=== PATIENT | male | born 1985 | race Caucasian/White ===

== ENCOUNTER 2016-10-12 21:49 | Emergency (ER) | payer SELFPAY ==
[2016-10-12 22:04] VITALS: BP 102/64; PULSE 83; RESP 18; TEMP 98.1; O2SAT 100
== END 2016-10-12 22:00 | disposition left against medical advice (07) ==
LOC: C.ER 21:49
DX: R10.13 Epigastric pain (principal); Z02.9 Encounter for administrative examinations, unspecified

== ENCOUNTER 2018-01-07 13:41 | Emergency (ER) | payer MEDICAID, OTHER ==
[2018-01-07 14:01] VITALS: BP 113/74; PULSE 89; TEMP 99; O2SAT 100
--- NOTE | 2018-01-07 14:11 | C.PDOC ---
History Of Present Illness 32 year old male presents to the ED c/o rectal pain for the past 3 days. Patient reports he is not able to have a bowel movement due to the pain it cause with his hemorrhoids. Patient has tried OTC cream with no relief to his symptoms. Patient denies fever, chills, back pain, blood in the stool, rectal itching, rash. Time Seen by Provider: 01/07/18 13:57 Chief Complaint (Nursing): Back Pain History Per: Patient History/Exam Limitations: no limitations Onset/Duration Of Symptoms: Days (3) Current Symptoms Are (Timing): Still Present Quality Of Discomfort: "Pain" Previous Symptoms: None Associated Symptoms: None Recent travel outside of the [place]: No Additional History Per: Patient Past Medical History Reviewed: Historical Data, Nursing Documentation, Vital Signs Vital Signs: Last Vital Signs Temp 99 F 01/07/18 13:59 Pulse 89 01/07/18 13:59 Resp 16 01/07/18 14:42 BP 113/74 01/07/18 13:59 Pulse Ox 100 01/07/18 14:24 - Medical History PMH: Gastritis Surgical History: Endoscopy Family History: States: Unknown Family Hx - Social History Hx Alcohol Use: No Hx Substance Use: No - Immunization History Hx Tetanus Toxoid Vaccination: No Hx Influenza Vaccination: No Hx Pneumococcal Vaccination: No Review Of Systems Constitutional: Negative for: Fever, Chills Cardiovascular: Negative for: Chest Pain Gastrointestinal: Positive for: Constipation, Rectal Pain. Negative for: Abdominal Pain, Diarrhea Musculoskeletal: Negative for: Back Pain Skin: Negative for: Rash Physical Exam - Physical Exam Appears: Non-toxic, No Acute Distress Skin: Normal Color, Warm, Dry Head: Atraumatic, Normacephalic Eye(s): bilateral: Normal Inspection Oral Mucosa: Moist Neck: Normal ROM, Supple Gastrointestinal/Abdominal: Soft, No Tenderness, No Guarding, No Rebound Rectal: Rectal Tone (normal), No Blood Streaked Stool, Hemorrhoids (external, tender nonthrombosed), No Mass Extremity: Normal ROM, No Tenderness, No Swelling Neurological/Psych: Oriented x3, Normal Speech Gait: Steady ED Course And Treatment O2 Sat by Pulse Oximetry: 100 (ON RA) Pulse Ox Interpretation: Normal Medical Decision Making Medical Decision Making: Impression: rectal pain due to hemorrhoids Plan: * Anusol-HC 25 mg [place] * Motrin 600 mg PO Disposition Counseled Patient/Family Regarding: Diagnosis, Need For Followup, Rx Given - Disposition Disposition: HOME/ ROUTINE Disposition Time: 14:22 Condition: GOOD Additional Instructions: Follow up with your primary medical doctor or clinic in 2-5 days for further evaluation. Take medications as prescribed. Return to the emergency department at any time if symptoms persist or worsen. 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 - Scribe Statement The provider has reviewed the documentation as recorded by the Scribe Chilango Antonio All medical record entries made by the Scribe were at my direction and personally dictated by me. I have reviewed the chart and agree that the record accurately reflects my personal performance of the history, physical exam, medical decision making, and the department course for this patient. I have also personally directed, reviewed, and agree with the discharge instructions and disposition.
[2018-01-07 14:43] VITALS: RESP 16
== END 2018-01-07 14:42 | disposition home or self-care (01) ==
LOC: C.ER 13:41
DX: K64.4 Residual hemorrhoidal skin tags (principal)